=== PATIENT | female | born 1980 | race Caucasian/White ===

== ENCOUNTER 2019-05-01 07:43 | Day surgery (SDC) | payer OTHER ==
[2019-05-01 09:03] LABS: ADD MAN DIFF? NO
[2019-05-01 09:05] LABS: BASOPHIL # 0.1 10^3/ul (0.0-0.1); BASOPHILS % 0.8 % (0.0-2.0); EOSINOPHILS # 0.3 10^3/ul (0.0-0.5); EOSINOPHILS % 3.8 % (0.0-7.0); HEMATOCRIT 35.6 % (37.0-47.0); HEMOGLOBIN 11.4 g/dl (12.0-16.0); LYMPHOCYTES # 1.5 10^3/ul (0.8-2.9); LYMPHOCYTES % 23.4 % (15.0-51.0); MEAN CORPUSCULAR HEMOGLOBIN 26.3 pg (29.0-33.0); MEAN CORPUSCULAR VOLUME 82.2 fl (82.0-101.0); MEAN PLATELET VOLUME 10.8 fl (7.4-10.4); MONOCYTE # 0.5 10^3/ul (0.3-0.9); MONOCYTES % 7.5 % (0.0-11.0); NEUTROPHIL # 4.2 10^3/ul (1.6-7.5); NEUTROPHILS % 63.9 % (39.0-77.0); PLATELET COUNT 250 10^3/UL (140-415); RED BLOOD COUNT 4.33 10^6/ul (4.20-5.40); RED CELL DISTRIBUTION WIDTH 15.8 % (11.5-14.5)
[2019-05-01 09:05] LABS: WHITE BLOOD COUNT 6.5 10^3/ul (4.8-10.8)
[2019-05-01 09:24] LABS: INR 0.94; PROTIME 12.7 Sec (11.9-14.9)
[2019-05-01 09:25] LABS: PARTIAL THROMBOPLASTIN TIME 26.1 Sec (23.0-35.0)
[2019-05-01 09:30] LABS: ALANINE AMINOTRANSFERASE 29 IU/L (13-69); ALBUMIN 4.3 g/dl (3.3-4.9); ALBUMIN/GLOBULIN RATIO 1.34; ALKALINE PHOSPHATASE 49 IU/L (42-121); ANION GAP 9 (5-13); ASPARTATE AMINO TRANSFERASE 25 IU/L (15-46); BILIRUBIN,INDIRECT 0.5 mg/dl (0-1.1); BILIRUBIN,TOTAL 0.5 mg/dl (0.2-1.3); BLOOD UREA NITROGEN 18 mg/dl (7-20); CALCIUM 9.2 mg/dl (8.4-10.2); CARBON DIOXIDE 28 mmol/L (21-31); CHLORIDE 104 mmol/L (97-110); CREATININE 0.65 mg/dl (0.44-1.00); Estimated GFR > 60 mL/min (>60); GLUCOSE 108 mg/dl (70-220); POTASSIUM 3.6 mmol/L (3.5-5.1); SODIUM 141 mmol/L (135-144); TOTAL PROTEIN 7.5 g/dl (6.1-8.1)
[2019-05-01] MEDS: SOD CHLORIDE 0.9% 1,000 ML IV (09:39)
[2019-05-01] MEDS ORDERED: PROPOFOL 20 ML (10:54)
[2019-05-01] MEDS ORDERED: ROCURONIUM 50 MG INJ (10:54)
[2019-05-01] MEDS ORDERED: LIDOCAINE 2% (SDV) 5 ML INJ (10:54)
[2019-05-01] MEDS ORDERED: MIDAZOLAM 1 MG/ML 2 ML INJ (10:55)
[2019-05-01] MEDS ORDERED: ROPIVACAINE 0.5 % 30 ML VIAL (10:58)
[2019-05-01] MEDS ORDERED: HYDROmorphONE 1 MG/5 ML IV SYRINGE IV (11:00)
[2019-05-01] MEDS ORDERED: LABETALOL HCL 20MG INJ IV (11:00)
[2019-05-01] MEDS ORDERED: hydrALAzine 20 MG INJ IV (11:00)
[2019-05-01] MEDS ORDERED: OXYCODONE/ACETAMINOPHEN (5/325) TAB PO (11:00)
[2019-05-01] MEDS ORDERED: CEFAZOLIN 1 GM INJ (11:24)
[2019-05-01] MEDS ORDERED: ONDANSETRON 4 MG INJ (11:24)
[2019-05-01] MEDS: CEFAZOLIN 2 GM/50 ML (PMX) 50 ML IVPB (11:30)
[2019-05-01] MEDS ORDERED: SUGAMMADEX SODIUM 200 MG/2 ML VIAL IV (12:00)
[2019-05-01] MEDS: HYDROmorphONE 1 MG/5 ML IV SYRINGE IV ×3 (12:29→12:52)
[2019-05-01] MEDS: ONDANSETRON 4 MG INJ IV (12:29)
[2019-05-01] MEDS: OXYCODONE/ACETAMINOPHEN (5/325) TAB PO (12:29)
[2019-05-01] MEDS: HYDROCODONE/APAP (5/325) TAB PO (12:32)
[2019-05-01] MEDS ORDERED: MEPERIDINE 25 MG INJ (13:04)
[2019-05-01] MEDS: MEPERIDINE 25 MG INJ IV (13:16)
[2019-05-01] MEDS: FENTAnyl 50 MCG/ML VIAL IV ×2 (13:29→13:39)
[2019-05-01] MEDS ORDERED: FENTAnyl 50 MCG/ML VIAL IV ×2 (13:30)
== END 2019-05-01 14:36 | disposition home or self-care (01) ==
LOC: SDS 07:43
DX: K80.10 Calculus of gallbladder with chronic cholecystitis without obstruction (principal); I10 Essential (primary) hypertension; F41.9 Anxiety disorder, unspecified; E66.9 Obesity, unspecified
CPT/HCPCS: 47562; 71045; 80053; 85025; 85610; 85730; 88304; 93005

== ENCOUNTER 2019-05-04 14:20 | Inpatient (IN) | payer OTHER ==
[2019-05-04] MEDS ORDERED: ONDANSETRON 4 MG INJ IV (15:00)
[2019-05-04] MEDS: ONDANSETRON 4 MG INJ IV (15:49)
[2019-05-04] MEDS: HYDROmorphONE 0.5 MG/0.5 ML SYG IV ×2 (15:49→21:45)
[2019-05-04] MEDS: SOD CHLORIDE 0.9% 1,000 ML IV (15:50)
[2019-05-04] MEDS ORDERED: LORAZEPAM 2 MG INJ IV (16:00)
[2019-05-04] MEDS ORDERED: hydrALAzine 20 MG INJ IV (16:00)
[2019-05-04] MEDS ORDERED: NACL 0.9% 3 ML SYG IV (16:00)
[2019-05-04 16:22] LABS: ADD MAN DIFF? NO
[2019-05-04 16:27] LABS: WHITE BLOOD COUNT 9.1 10^3/ul (4.8-10.8)
[2019-05-04 16:27] LABS: BASOPHILS % 0.4 % (0.0-2.0); EOSINOPHILS # 0.1 10^3/ul (0.0-0.5); EOSINOPHILS % 0.9 % (0.0-7.0); HEMATOCRIT 34.2 % (37.0-47.0); HEMOGLOBIN 10.7 g/dl (12.0-16.0); LYMPHOCYTES % 11.1 % (15.0-51.0); MEAN CORPUSCULAR HEMOGLOBIN 26.1 pg (29.0-33.0); MEAN CORPUSCULAR HGB CONC 31.3 g/dl (32.0-37.0); MEAN CORPUSCULAR VOLUME 83.4 fl (82.0-101.0); MEAN PLATELET VOLUME 10.4 fl (7.4-10.4); MONOCYTE # 0.6 10^3/ul (0.3-0.9); MONOCYTES % 6.9 % (0.0-11.0); NEUTROPHIL # 7.3 10^3/ul (1.6-7.5); NEUTROPHILS % 80.3 % (39.0-77.0); PLATELET COUNT 235 10^3/UL (140-415); RED CELL DISTRIBUTION WIDTH 15.5 % (11.5-14.5)
[2019-05-04 16:36] LABS: HEMOGLOBIN A1C 5.9 % (0-5.9)
[2019-05-04 16:43] LABS: ALANINE AMINOTRANSFERASE 78 IU/L (13-69); ALBUMIN 3.9 g/dl (3.3-4.9); ALBUMIN/GLOBULIN RATIO 1.14; ALKALINE PHOSPHATASE 74 IU/L (42-121); ANION GAP 7 (5-13); ASPARTATE AMINO TRANSFERASE 39 IU/L (15-46); BILIRUBIN,INDIRECT 0.8 mg/dl (0-1.1); BILIRUBIN,TOTAL 0.8 mg/dl (0.2-1.3); BLOOD UREA NITROGEN 6 mg/dl (7-20); CALCIUM 8.6 mg/dl (8.4-10.2); CARBON DIOXIDE 31 mmol/L (21-31); CHLORIDE 98 mmol/L (97-110); CREATININE 0.64 mg/dl (0.44-1.00); Estimated GFR > 60 mL/min (>60); GLUCOSE 109 mg/dl (70-220); PHOSPHORUS 3.6 mg/dl (2.5-4.9); POTASSIUM 3.8 mmol/L (3.5-5.1); SODIUM 136 mmol/L (135-144); TOTAL PROTEIN 7.3 g/dl (6.1-8.1)
[2019-05-04 16:44] LABS: LACTIC ACID 1.1 mmol/L (0.5-2.0)
[2019-05-04] MEDS: AMPICILLIN/SULB 3 GM/NS (PMX) 100 ML IVPB ×2 (18:18→23:41)
[2019-05-04] MEDS: metroNIDAZOLE 500 MG/NS (PMX) 100 ML IVPB (22:01)
[2019-05-05] MEDS: SOD CHLORIDE 0.9% 1,000 ML IV ×3 (01:31→21:12)
[2019-05-05] MEDS: HYDROmorphONE 0.5 MG/0.5 ML SYG IV ×2 (02:23→06:52)
[2019-05-05] MEDS: ONDANSETRON 4 MG INJ IV ×2 (02:30→10:48)
[2019-05-05] MEDS: metroNIDAZOLE 500 MG/NS (PMX) 100 ML IVPB ×3 (05:27→21:20)
[2019-05-05 05:40] LABS: ADD MAN DIFF? NO
[2019-05-05 05:45] LABS: WHITE BLOOD COUNT 7.6 10^3/ul (4.8-10.8)
[2019-05-05 05:45] LABS: BASOPHILS % 0.3 % (0.0-2.0); EOSINOPHILS # 0.1 10^3/ul (0.0-0.5); EOSINOPHILS % 1.7 % (0.0-7.0); HEMATOCRIT 32.4 % (37.0-47.0); LYMPHOCYTES # 0.9 10^3/ul (0.8-2.9); LYMPHOCYTES % 12.2 % (15.0-51.0); MEAN CORPUSCULAR HEMOGLOBIN 25.9 pg (29.0-33.0); MEAN CORPUSCULAR HGB CONC 30.9 g/dl (32.0-37.0); MEAN CORPUSCULAR VOLUME 83.9 fl (82.0-101.0); MEAN PLATELET VOLUME 10.9 fl (7.4-10.4); MONOCYTE # 0.6 10^3/ul (0.3-0.9); MONOCYTES % 8.2 % (0.0-11.0); NEUTROPHIL # 5.8 10^3/ul (1.6-7.5); NEUTROPHILS % 77.1 % (39.0-77.0); PLATELET COUNT 235 10^3/UL (140-415); RED BLOOD COUNT 3.86 10^6/ul (4.20-5.40); RED CELL DISTRIBUTION WIDTH 15.5 % (11.5-14.5)
[2019-05-05 06:05] LABS: INR 1.05; PROTIME 13.8 Sec (11.9-14.9); PT RATIO 1.1
[2019-05-05 06:06] LABS: PARTIAL THROMBOPLASTIN TIME 27.2 Sec (23.0-35.0)
[2019-05-05 06:15] LABS: MAGNESIUM 2.1 mg/dl (1.7-2.5)
[2019-05-05 06:15] LABS: PHOSPHORUS 3.9 mg/dl (2.5-4.9)
[2019-05-05 06:20] LABS: ALANINE AMINOTRANSFERASE 65 IU/L (13-69); ALBUMIN 3.4 g/dl (3.3-4.9); ALBUMIN/GLOBULIN RATIO 1.06; ALKALINE PHOSPHATASE 77 IU/L (42-121); ANION GAP 6 (5-13); ASPARTATE AMINO TRANSFERASE 32 IU/L (15-46); BILIRUBIN,INDIRECT 0.7 mg/dl (0-1.1); BILIRUBIN,TOTAL 0.7 mg/dl (0.2-1.3); BLOOD UREA NITROGEN 9 mg/dl (7-20); CALCIUM 8.2 mg/dl (8.4-10.2); CARBON DIOXIDE 32 mmol/L (21-31); CHLORIDE 99 mmol/L (97-110); CREATININE 0.59 mg/dl (0.44-1.00); Estimated GFR > 60 mL/min (>60); GLUCOSE 103 mg/dl (70-220); POTASSIUM 3.7 mmol/L (3.5-5.1); SODIUM 137 mmol/L (135-144); TOTAL PROTEIN 6.6 g/dl (6.1-8.1)
[2019-05-05] MEDS: AMPICILLIN/SULB 3 GM/NS (PMX) 100 ML IVPB ×3 (06:52→17:56)
[2019-05-05] MEDS: POLYETHYLENE GLYCOL 17 GM PACKET PO (10:05)
[2019-05-05] MEDS: ACETAMINOPHEN 325 MG TAB PO (10:07)
[2019-05-05] MEDS: KETOROLAC 15 MG INJ IV (16:10)
[2019-05-05] MEDS: SUMATRIPTAN 6 MG/0.5 ML INJ SC (19:58)
[2019-05-06] MEDS: AMPICILLIN/SULB 3 GM/NS (PMX) 100 ML IVPB ×5 (00:21→23:39)
[2019-05-06] MEDS: metroNIDAZOLE 500 MG/NS (PMX) 100 ML IVPB ×3 (05:19→21:54)
[2019-05-06] MEDS: SOD CHLORIDE 0.9% 1,000 ML IV ×3 (07:31→17:18)
[2019-05-06] MEDS: SUMATRIPTAN 6 MG/0.5 ML INJ SC (08:43)
[2019-05-06] MEDS: ZOLPIDEM 5 MG TAB PO (21:10)
[2019-05-07] MEDS: SOD CHLORIDE 0.9% 1,000 ML IV ×2 (02:49→13:31)
[2019-05-07] MEDS: metroNIDAZOLE 500 MG/NS (PMX) 100 ML IVPB ×2 (05:16→14:40)
[2019-05-07 06:04] LABS: ADD MAN DIFF? NO
[2019-05-07 06:15] LABS: BASOPHILS % 0.4 % (0.0-2.0); EOSINOPHILS # 0.2 10^3/ul (0.0-0.5); EOSINOPHILS % 3.2 % (0.0-7.0); HEMATOCRIT 29.6 % (37.0-47.0); HEMOGLOBIN 9.4 g/dl (12.0-16.0); LYMPHOCYTES # 1.3 10^3/ul (0.8-2.9); LYMPHOCYTES % 18.8 % (15.0-51.0); MEAN CORPUSCULAR HEMOGLOBIN 26.4 pg (29.0-33.0); MEAN CORPUSCULAR HGB CONC 31.8 g/dl (32.0-37.0); MEAN CORPUSCULAR VOLUME 83.1 fl (82.0-101.0); MEAN PLATELET VOLUME 10.4 fl (7.4-10.4); MONOCYTE # 0.5 10^3/ul (0.3-0.9); MONOCYTES % 7.2 % (0.0-11.0); NEUTROPHIL # 4.8 10^3/ul (1.6-7.5); NEUTROPHILS % 69.5 % (39.0-77.0); PLATELET COUNT 248 10^3/UL (140-415); RED BLOOD COUNT 3.56 10^6/ul (4.20-5.40)
[2019-05-07] MEDS: AMPICILLIN/SULB 3 GM/NS (PMX) 100 ML IVPB ×2 (06:17→14:45)
[2019-05-07] MEDS: traMADol 50 MG TAB PO (06:17)
[2019-05-07 06:30] LABS: ANION GAP 6 (5-13); BLOOD UREA NITROGEN 8 mg/dl (7-20); CALCIUM 8.3 mg/dl (8.4-10.2); CARBON DIOXIDE 28 mmol/L (21-31); CHLORIDE 105 mmol/L (97-110); CREATININE 0.58 mg/dl (0.44-1.00); Estimated GFR > 60 mL/min (>60); GLUCOSE 108 mg/dl (70-220); POTASSIUM 3.4 mmol/L (3.5-5.1); SODIUM 139 mmol/L (135-144)
[2019-05-07] MEDS: POTASSIUM CHLORIDE (SR) 20 MEQ TAB PO (09:27)
[2019-05-07] MEDS: ONDANSETRON 4 MG INJ IV (09:32)
== END 2019-05-07 17:15 | disposition home or self-care (01) | DRG 390 ==
LOC: E/R 14:20 → 2NE 14:36
DX: K56.609 Unspecified intestinal obstruction, unspecified as to partial versus complete obstruction (principal); I10 Essential (primary) hypertension; F41.9 Anxiety disorder, unspecified; K59.03 Drug induced constipation
CPT/HCPCS: 80048; 80053; 83036; 83605; 83735; 84100; 84703; 85025; 85610; 85730; 99285-25